=== PATIENT | female | born 1985 | race African-American/Black ===

== ENCOUNTER 2020-04-19 14:22 | Emergency (ER) | payer OTHER ==
[~2020-04-19] VITALS: Ht 162.6 cm; Wt 100.0 kg
[2020-04-19] MEDS ORDERED: SODIUM CHLORIDE 0.9% 1,000 ML IV ONE (14:45)
[2020-04-19] MEDS ORDERED: ONDANSETRON HCL 4MG/2ML INJ IV STA (15:06)
[2020-04-19] MEDS ORDERED: KETOROLAC 30MG/ML VIAL IV STA (15:06)
[2020-04-19 15:25] LABS: BASOPHILS % 0.7 % (0.0-2.0); EOSINOPHILS % 1.2 % (0.0-5.0); HEMOGLOBIN. 11.9 g/dL (12.0-16.0); LYMPHOCYTES % 25.9 % (20.0-50.0); MEAN CORPUSCULAR HEMOGLOBIN 27.6 pg (28.0-32.0); MEAN CORPUSCULAR VOLUME 83.4 fL (81.0-99.0); MEAN PLATELET VOLUME 7.5 fl (7.4-10.4); MONOCYTES % 6.2 % (2.0-8.0); PLATELET 370 x1000/uL (130-400); RED BLOOD CELL COUNT 4.31 mill/uL (4.2-5.4); RED CELL DISTRIBUTION WIDTH 13.8 % (11.6-14.6)
[2020-04-19 15:27] LABS: CLARITY URINE CLOUDY (CLEAR); COLOR URINE YELLOW (YELLOW); KETONES URINE NEGATIVE (NEGATIVE); LEUKOCYTE ESTERASE URINE 2+ (NEGATIVE); NITRITE URINE NEGATIVE (NEGATIVE); OCCULT BLOOD URINE 1+ (NEGATIVE); PROTEIN URINE NEGATIVE (NEGATIVE); SPECIFIC GRAVITY URINE 1.022 (1.005-1.030); UROBILINOGEN URINE 0.2 E.U./dL (0.2-1.0)
[2020-04-19 15:34] LABS: CHLORIDE 107 mEq/L (98-107)
[2020-04-19 15:35] LABS: PROTHROMBIN TIME 10.9 sec (9.6-11.0)
[2020-04-19 15:40] LABS: *AMPHETAMINES SCREEN URINE NEGATIVE (NEGATIVE); *BARBITURATES SCREEN URINE NEGATIVE (NEGATIVE); *COCAINE SCREEN URINE NEGATIVE (NEGATIVE); METHADONE URINE SCREEN NEGATIVE (NEGATIVE); OPIATES URINE SCREEN NEGATIVE (NEGATIVE)
[2020-04-19 15:41] LABS: PHENCYCLIDINE URINE SCREEN NEGATIVE (NEGATIVE)
[2020-04-19 15:42] LABS: *BENZODIAZEPINES SCREEN URINE PRESUMTIVE POSITIVE (NEGATIVE); CANNABINOID URINE SCREEN PRESUMTIVE POSITIVE (NEGATIVE)
[2020-04-19 15:43] LABS: HCG SCREEN NEGATIVE
[2020-04-19] MEDS ORDERED: CEFTRIAXONE 1 G PREMIX 50 ML IV ONE (16:15)
[2020-04-19] MEDS ORDERED: SULF1TAB48 MT (17:23)
[2020-04-19] MEDS ORDERED: IBUP-2028 MT (17:23)
[2020-04-19] MEDS ORDERED: PHEN-815 MT (17:23)
[2020-04-19] MEDS ORDERED: ONDA4TAB5 MT (17:23)
[2020-04-19] MEDS ORDERED: DIF15 MT (17:31)
[2020-04-19 17:50] VITALS: BP 123/74
== END 2020-04-19 18:01 | disposition home or self-care (01) ==
LOC: ER 14:22
DX: N10 Acute pyelonephritis (principal); F12.10 Cannabis abuse, uncomplicated; Z98.890 Other specified postprocedural states
CPT/HCPCS: 36415; 74176; 80053; 80305; 81003; 81025; 83605; 83690; 84703; 85025; 85610; 87040; 87086; 96374; 96375; 99284; J0696; J1885; J2405; J7030

== ENCOUNTER 2022-12-11 08:51 | Emergency (ER) | payer OTHER ==
[~2022-12-11] VITALS: Ht 167.6 cm; Wt 100.0 kg
[~2022-12-11 08:51] MED LIST: DIF15 MT; IBUP-2028 MT; ONDA4TAB5 MT; PHEN-815 MT; SULF1TAB48 MT
[2022-12-11 09:00] VITALS: TEMP 98.6; O2SAT 99
[2022-12-11] MEDS ORDERED: KETOROLAC 30MG/ML VIAL IM ONE (09:30)
[2022-12-11 10:26] LABS: BASOPHILS % 0.8 % (0.0-2.0); EOSINOPHILS % 2.9 % (0.0-5.0); HEMATOCRIT. 37.9 % (36.0-48.0); HEMOGLOBIN. 12.6 g/dL (12.0-16.0); LYMPHOCYTES % 22.1 % (20.0-50.0); MEAN CORPUSCULAR HEMOGLOBIN 27.9 pg (28.0-32.0); MEAN CORPUSCULAR HGB CONC 33.1 g/dL (31.0-37.0); MEAN CORPUSCULAR VOLUME 84.3 fL (81.0-99.0); MEAN PLATELET VOLUME 7.4 fl (7.4-10.4); MONOCYTES % 8.1 % (2.0-8.0); NEUTROPHILS % 66.1 % (40.0-76.0); PLATELET 382 x1000/uL (130-400); RED BLOOD CELL COUNT 4.49 mill/uL (4.2-5.4); RED CELL DISTRIBUTION WIDTH 13.5 % (11.6-14.6); WHITE BLOOD COUNT 9.4 x1000/uL (4.5-11.0)
[2022-12-11 10:49] LABS: CHLORIDE 107 mEq/L (98-107); INDEX HEMOLYSI 1 (1-3); INDEX ICTERIC 1 (1-4); INDEX LIPEMIC 1 (1-3); POTASSIUM 3.8 mEq/L (3.5-5.1); SODIUM 140 mEq/L (136-145)
[2022-12-11 11:17] LABS: HCG SCREEN NEGATIVE
[2022-12-11 12:09] LABS: ALANINE AMINOTRANSFERASE 20 IU/L (13-61); ALBUMIN 3.7 g/dL (3.4-5.0); ASPARTATE AMINOTRANSFERASE 18 IU/L (15-37); BILIRUBIN TOTAL 0.5 mg/dL (0.1-1.0); CALCIUM 8.6 mg/dL (8.5-10.1); CREATININE 0.9 mg/dL (0.6-1.3); GLUCOSE 89 mg/dL (70-105); PROTEIN TOTAL 8.6 g/dL (6.0-8.3); UREA NITROGEN BLOOD 9 mg/dL (7-21)
[2022-12-11 13:51] LABS: TROPONIN I HIGH SENSITIVITY < 4 ng/L (<54)
[2022-12-11 13:59] VITALS: BP 140/80; PULSE 87; RESP 16
[2022-12-11 14:37] LABS: CARBON DIOXIDE 25 mEq/L (21-32)
== END 2022-12-11 14:02 | disposition home or self-care (01) ==
LOC: ER 08:51
DX: R00.2 Palpitations (principal); F12.10 Cannabis abuse, uncomplicated; Z98.890 Other specified postprocedural states
CPT/HCPCS: 80053; 84703; 85025; 84484; 36415; 71045; 93005; 96372; 99285; J1885; Z7610 ×3